=== PATIENT | female | born 1975 | race African-American/Black ===

== ENCOUNTER 2019-10-14 21:05 | Emergency (ER) | payer OTHER ==
[~2019-10-14] VITALS: Ht 172.7 cm; Wt 142.9 kg
[2019-10-14 21:58] LABS: ABSOLUTE NEUTROPHILS 13.1 thou/uL (1.4-8.2); BASOPHILS 0.5 % (0.0-2.0); EOSINOPHILS 0.3 % (0.0-3.0); HEMATOCRIT 41.9 % (37.0-47.0); HEMOGLOBIN 13.9 gm/dL (12.0-15.0); LYMPHOCYTES 14.2 % (24.0-44.0); MCH 26.3 pg (26.0-34.0); MCHC 33.2 g/dL (28.0-37.0); MCV 79.1 fL (80.0-100.0); MONOCYTES 6.2 % (1.0-8.0); PLATELET COUNT 421 thou/uL (150-400); POLYS 78.8 % (36.0-66.0); RDW 15.5 % (10.5-14.5); WBC 16.7 thou/uL (4.0-11.0)
[2019-10-14 22:07] LABS: ANION GAP 15 mmol/L (7-16); BUN 9 mg/dL (7-18); CALCIUM 8.9 mg/dL (8.5-10.1); CHLORIDE 102 mmol/L (98-107); CO2 20 mmol/L (21-32); CREATININE 1.4 mg/dL (0.6-1.0); GLUCOSE 141 mg/dL (74-106); POTASSIUM 3.2 mmol/L (3.5-5.1); SODIUM 137 mmol/L (136-145)
[2019-10-14 22:17] LABS: ALBUMIN 4.5 g/dL (3.4-5.0); LIPASE 225 U/L (73-393); MAGNESIUM 2.1 mg/dL (1.8-2.4); SGOT 25 U/L (15-37); SGPT 37 U/L (30-65); TOTAL BILIRUBIN 0.6 mg/dL (0.2-1.0); TOTAL PROTEIN 8.7 g/dL (6.4-8.2); TROPONIN-I <0.06 ng/mL (<0.06)
[2019-10-14] MEDS ORDERED: LISINOPRIL2.5 MG PO (23:02)
[2019-10-14 23:06] LABS: URINE BILIRUBIN NEGATIVE (Negative); URINE BLOOD TRACE (Negative); URINE CLARITY SL CLOUDY; URINE COLOR YELLOW; URINE GLUCOSE-RANDOM* NEGATIVE (Negative); URINE KETONES NEGATIVE (Negative); URINE NITRITE-REFLEX NEGATIVE (Negative); URINE PROTEIN (DIPSTICK) NEGATIVE (Negative); URINE SPECIFIC GRAVITY 1.015 (1.005-1.035); URINE UROBILINOGEN 0.2 E.U./dl (0.2-1.0)
[2019-10-14 23:08] LABS: URINE LEUKOCYTES-REFLEX 1+ (Negative)
[2019-10-14 23:14] LABS: AMP/METHAMP Negative (Negative); BARBITURATES Negative (Negative); BENZODIAZEPINES Negative (Negative); COCAINE Negative (Negative); METHADONE Negative (Negative); OPIATES Negative (Negative); PCP Negative (Negative)
[2019-10-14 23:25] LABS: CASTS None Seen /LPF (None Seen); CRYSTALS None Seen /LPF (None Seen); MUCUS 4-6 Moderate strn/LPF (None Seen); SQUAMOUS 4-10 Moderate /LPF (0-3); URINE RBC 0-2 Rare /HPF (0-2); URINE WBC-REFLEX 6-15 Few /HPF (0-5)
[2019-10-15 01:19] VITALS: BP 150/100
[2019-10-15] MEDS ORDERED: ATIVAN0.5 M1 PO (01:19)
--- NOTE | 2019-10-15 08:29 | EKG ---
[facility] [place] [address] ELECTROCARDIOGRAM REPORT Name: JESSICA HILLIARD Room #: DEP [facility]#: [id number] Admission: 10/14/19 Attend Phys: Discharge: 10/15/19 Date of : 75 Report #: [id number] THIS REPORT FOR: cc: FAM - Family physician unknown FAM - Family physician unknown Irineo Zendejas MD [facility] ~ THIS REPORT FOR: //name// [facility] ED Test Date: 2019-10-14 Test Time: 21:46:47 Pat Name: JESSICA HILLIARD Department: Room: Gender: F Afternoon Nanny: [facility] : 1975 Requested By: David Pritchard Order Number: [id number] MD: Irineo Zendejas Measurements Intervals [place] Rate: 111 P: 18 WY: 154 QRS: 31 QRSD: 94 T: 48 QT: 348 QTc: 473 Interpretive Statements Sinus tachycardia Nonspecific ST and T wave abnormality No previous ECG available for comparison Electronically Signed On 10-15-2019 8:27:04 CDT by Irineo Zendejas [email or web address] <ELECTRONICALLY SIGNED> By: Irineo Zendejas MD, [facility] 10/15/19 0827 45 45 Irineo Zendejas MD, [facility] /EPI
== END 2019-10-15 01:28 | disposition home or self-care (01) ==
LOC: ER 21:05
PROVIDERS: Emergency Medicine
DX: R55 Syncope and collapse (principal); R42 Dizziness and giddiness; F41.9 Anxiety disorder, unspecified; E87.6 Hypokalemia; D72.829 Elevated white blood cell count, unspecified; I10 Essential (primary) hypertension; Z88.6 Allergy status to analgesic agent; Z79.899 Other long term (current) drug therapy

== ENCOUNTER 2019-10-17 14:32 | Inpatient (IN) | payer OTHER ==
[~2019-10-17] VITALS: Ht 172.7 cm; Wt 142.9 kg
[~2019-10-17 14:32] MED LIST: ATIVAN0.5 M1 PO; LISINOPRIL2.5 MG PO
[2019-10-17 14:54] VITALS: BP 117/91
[2019-10-17 15:06] LABS: URINE BILIRUBIN NEGATIVE (Negative); URINE BLOOD 2+ (Negative); URINE CLARITY CLEAR; URINE COLOR YELLOW; URINE GLUCOSE-RANDOM* NEGATIVE (Negative); URINE KETONES NEGATIVE (Negative); URINE LEUKOCYTES-REFLEX TRACE (Negative); URINE PROTEIN (DIPSTICK) 1+ (Negative)
[2019-10-17 15:07] LABS: URINE NITRITE-REFLEX POSITIVE (Negative)
[2019-10-17 15:15] LABS: ABSOLUTE NEUTROPHILS 13.1 thou/uL (1.4-8.2); EOSINOPHILS 0.1 % (0.0-3.0); HEMATOCRIT 43.9 % (37.0-47.0); HEMOGLOBIN 14.4 gm/dL (12.0-15.0); LYMPHOCYTES 17.3 % (24.0-44.0); MCHC 32.8 g/dL (28.0-37.0); MCV 79.2 fL (80.0-100.0); MONOCYTES 5.9 % (1.0-8.0); PLATELET COUNT 448 thou/uL (150-400); POLYS 75.7 % (36.0-66.0); RBC 5.54 mil/uL (4.20-5.00); RDW 15.6 % (10.5-14.5); WBC 17.3 thou/uL (4.0-11.0)
[2019-10-17 15:22] LABS: BACTERIA-REFLEX >30 Many /HPF (None Seen); CASTS None Seen /LPF (None Seen); CRYSTALS None Seen /LPF (None Seen); SQUAMOUS 0-3 Few /LPF (0-3); URINE RBC 0-2 Rare /HPF (0-2)
[2019-10-17 15:24] LABS: CALCIUM 9.6 mg/dL (8.5-10.1); CREATININE 1.2 mg/dL (0.6-1.0); POTASSIUM 3.2 mmol/L (3.5-5.1)
[2019-10-17 15:30] LABS: ALBUMIN 4.8 g/dL (3.4-5.0); TOTAL BILIRUBIN 0.8 mg/dL (0.2-1.0); TOTAL PROTEIN 9.5 g/dL (6.4-8.2)
[2019-10-17 19:07] LABS: TSH 0.181 uIU/mL (0.358-3.740)
[2019-10-17 19:43] LABS: FOLIC ACID 41.2 ng/mL (8.6-58.9)
[2019-10-17 19:55] VITALS: BP 154/88
[2019-10-17 21:52] VITALS: BP 137/95
[2019-10-18] VITALS (7 sets, daily range): BP systolic 100–160; BP diastolic 76–119
--- NOTE | 2019-10-18 03:56 | NUR ---
ASSUMED CARE OF PT AT 1900HRS. PT AOX4 AND LETS NEEDS BE KNOWN. FALL PRECAUTION IN PLACE DUE TO RECENT FALLS. PT IS A SBA WITH A STEADY GAIT. PT WAS ABLE TO SIGN OWN CONSENTS. PT WAS ORIENTED TO THE UNIT AND HER ROOM. K+ REPLACED. ORDERS RECEIVED AND STARTED. PT DENIED PAIN, NAUSEA OR SOA. PT REPORTED SOME ANXIETY AND PRN MED WAS GIVEN. PT HAD A TEMP OF 100.2 BUT OTHER VSS STABLE. PT IS ON SR OR ST ON THE MONITOR. PT WAS ABLE TO GET COMFORTABLE AND SLEEP PART OF THE SHIFT. WILL CONTINUE TO MONITOR FOR CHANGES.
[2019-10-18 06:06] LABS: BASOPHILS 0.3 % (0.0-2.0); EOSINOPHILS 0.3 % (0.0-3.0); HEMATOCRIT 36.8 % (37.0-47.0); HEMOGLOBIN 12.5 gm/dL (12.0-15.0); LYMPHOCYTES 20.2 % (24.0-44.0); MCH 27.1 pg (26.0-34.0); MCHC 33.9 g/dL (28.0-37.0); MCV 79.8 fL (80.0-100.0); MONOCYTES 5.7 % (1.0-8.0); POLYS 73.5 % (36.0-66.0); RBC 4.61 mil/uL (4.20-5.00); RDW 15.8 % (10.5-14.5); WBC 10.9 thou/uL (4.0-11.0)
[2019-10-18 06:11] LABS: PLATELET COUNT 343 thou/uL (150-400)
[2019-10-18 06:37] LABS: ANION GAP 13 mmol/L (7-16); BUN 8 mg/dL (7-18); CALCIUM 8.1 mg/dL (8.5-10.1); CHLORIDE 102 mmol/L (98-107); CHOLESTEROL 162 mg/dL (<200); CO2 22 mmol/L (21-32); CREATININE 0.9 mg/dL (0.6-1.0); GLUCOSE 110 mg/dL (74-106); HDL CHOLESTEROL 39 mg/dL (>40); LDL CHOLESTEROL 108 mg/dL (<100); POTASSIUM 3.7 mmol/L (3.5-5.1); SODIUM 137 mmol/L (136-145); TC:HDL 4.2 Ratio (Not establshd); TRIGLYCERIDE 77 mg/dL (<150); VLDL 15 mg/dL (<40)
[2019-10-18 06:38] LABS: SERUM ASSESSMENT Clear
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
--- NOTE | 2019-10-18 20:30 | NUR ---
Assumed pt care this am, nausea and vomiting was not noted for this shift. Pt was very anxous of vomiting, 'soft foods were preferred. Pt is able to ambulate in her room with a steady gait, ortho static bp done in the am. POC followed with no signs or verbalizations of distress noted. Pt was movedfrom 450 to 462, room needed to be fixed. endorsed to the night nurse.
--- NOTE | 2019-10-18 20:58 | NUR ---
call from pathology pt's covid test results were negative. Azucena WISE assigned to pt notified.
--- NOTE | 2019-10-19 05:42 | NUR ---
patient aox4 makes needs known. patient denied pain or discomfort.patient had high anxiety this shift.patient ambulates with steady gaits.fall precaution in place. patient in bed asleep at this time breathing regular and unlaboured.
[2019-10-19 06:03] VITALS: BP 153/111
[2019-10-19 08:14] VITALS: BP 168/123
[2019-10-19 08:19] VITALS: BP 161/125
[2019-10-19 08:21] VITALS: BP 157/114
--- NOTE | 2019-10-19 10:07 | NUR ---
RD consult received. Admit wiht UTI/sepsis and n/v. Hx htn, anxiety and depression and new dx PTSD. BMI 47.9=extreme class III obesity. Pt will be npo for EGD today. Note A1C borderline high and pt may benefit from carb controlled diet for wt loss. Advance diet as tolerated following procedure. Low nutrition risk.
--- NOTE | 2019-10-19 10:11 | NUR ---
Consider carb control diet when able to take PO again. A1C 6%, no hx dm indicated and pt with BMI of 47.9.
--- NOTE | 2019-10-19 10:13 | NUR ---
Rec carb controlled diet when diet advanced. Hx borderline diabetes and A1C 6%.
[2019-10-19 12:50] VITALS: BP 145/78
--- NOTE | 2019-10-19 19:57 | NUR ---
Assumed pt care this am, pt was npo and brought down for and EGD. Pt verbalizaed anxiety, medictions given as per emar. PLaced back on regular diet. VS stable, diarrhea noted latter part of the day, sample collected and sent to the lab for c-diff. Isolations precautions until c-diff results return. informed medications ordered. POC followed with no signs of distress. endorsed to the night nurse.
[2019-10-19 21:34] VITALS: BP 144/94
--- NOTE | 2019-10-20 03:09 | NUR ---
PATIENT ALERT AND ORIENTED X4. UP ADLIB IN ROOM WITH IV POLE. CONTINUOUS FLUIDS INFUSING W/O COMPLICATION. DENIES PAIN, HOWEVER REQUESTED AND GIVEN LORAZEPAM AT BED TIME. BS MONITORED PER ORDER. PATIENT HESITANT TO EAT FROM HER DINNER TRAY, HOWEVER, AFTER EATING NO NAUSEA OR VOMITING. RESTING QUIETLY. WILL MONITOR.
[2019-10-20 06:09] LABS: ABSOLUTE NEUTROPHILS 6.3 thou/uL (1.4-8.2); BASOPHILS 0.4 % (0.0-2.0); EOSINOPHILS 1.6 % (0.0-3.0); HEMATOCRIT 35.7 % (37.0-47.0); HEMOGLOBIN 12.1 gm/dL (12.0-15.0); LYMPHOCYTES 23.2 % (24.0-44.0); MCH 26.9 pg (26.0-34.0); MCV 79.1 fL (80.0-100.0); MONOCYTES 7.2 % (1.0-8.0); PLATELET COUNT 296 thou/uL (150-400); POLYS 67.6 % (36.0-66.0); RBC 4.51 mil/uL (4.20-5.00); WBC 9.3 thou/uL (4.0-11.0)
[2019-10-20 06:18] LABS: ALBUMIN 3.6 g/dL (3.4-5.0); CALCIUM 8.3 mg/dL (8.5-10.1); CREATININE 0.9 mg/dL (0.6-1.0); PHOSPHORUS 3.5 mg/dL (2.5-4.9); POTASSIUM 3.3 mmol/L (3.5-5.1); TOTAL BILIRUBIN 0.4 mg/dL (0.2-1.0); TOTAL PROTEIN 7.4 g/dL (6.4-8.2)
[2019-10-20 08:00] VITALS: BP 131/93; BP 146/110; BP 146/119
[2019-10-20] MEDS ORDERED: PANTOPRAZOLE SO40 M1 PO (12:56)
[2019-10-20] MEDS ORDERED: FLAGYL 250 MG250 MG PO (12:57)
[2019-10-20] MEDS ORDERED: FELODIPINE 5 MG5 M1 PO (12:57)
[2019-10-20] MEDS ORDERED: LEVAQUIN 500 M500 M3 PO (12:58)
[2019-10-20 15:00] VITALS: BP 148/101
[2019-10-20] MEDS ORDERED: BACTRIM DS TAB1 EACH PO (18:21)
[2019-10-20] MEDS ORDERED: BACTRIM DS TAB1 EAC1 PO (18:22)
[2019-10-20 18:23] VITALS: BP 148/101
--- NOTE | 2019-10-20 20:16 | NUR ---
Assumed pt care this am, vs stable, No N and V or losse bowels noted. POC followed with no signs or verbalizations of distress noted. Dr. Faustin arranaged with CM Anna Pineda [phone] for medications to be covered, issues arose. Dr. Faustin advised that the pt go to the pharmacy indicated by the CM and medication good for 1 day will be given to her for free. Other medications will be managed on Tuesday by the CM to resolve the issue with the accredited pharmacy. CM informed. DC instructions and precriptions given, IV removed. Pt is now DC.
--- NOTE | 2019-10-22 17:07 | PATH ---
[facility] [address] [place] [address] PATHOLOGY RPT PROCEDURE Name: JESSICA GLORIA Room #: 462-P DIS IN M.R.#: [id number] Admission: 10/17/19 Date of : 75 Discharge: 10/20/19 Report #: [id number] Path Case #: [id number] [facility] Accession Number: [id number] . 01 Material submitted: . stomach - BIOPSY ANTRUM R/O H. PYLORI . 01 Clinical history: . Pre-op diagnosis: N/V, abdominal pain Post-op diagnosis: Gastritis, esophagitis, hiatal hernia R/O H. pylori . 02 Diagnosis: Gastric mucosa, antrum, rule out H. pylori, endoscopic biopsy: - Mild chronic gastritis. - Negative for intestinal metaplasia or atrophy. - Negative for Helicobacter pylori (properly-controlled immunohistochemical stain performed). . (IUV:mml; 10/22/2019) QL 10/22/2019 1051 Local . 02 Electronically signed: . Tonya Loaiza MD, Pathologist NPI- [id number] . 01 Gross description: . The specimen is received in formalin, labeled "Jessica Gloria, biopsy of antrum". Received is a segment of pale viramontes soft tissue measuring 0.4 cm in maximum dimensions. The specimen is submitted entirely in cassette A1. (CAA; 10/19/2019) QAC/QAC 10/19/2019 1817 Local . 02 Pathologist provided ICD-10: K29.50 . 02 CPT . 964370, [id number] Specimen Comment: A courtesy copy of this report has been sent to [phone] Specimen Comment: [phone] Specimen Comment: Report sent to / DR JULIAN Performed at: [address], [place] [id number] MD Catarino Frances MD Phone: [phone] Performed at: [address] [address] PATHOLOGY RPT PROCEDURE Name: JESSICA GLORIA Room #: 462-P DIS IN M.R.#: [id number] Admission: 10/17/19 Date of : 75 Discharge: 10/20/19 Report #: [id number] Path Case #: [id number] [facility] [place] [id number] MD Tonya Loaiza MD Phone: [phone]
== END 2019-10-20 20:06 | disposition home or self-care (01) | DRG 872 ==
LOC: ER 14:32 → 4W 17:31 → EROBS 17:31 → 4W 20:43
PROVIDERS: Internal Medicine; Nurse Practitioner; Physician Assistant; ADMIT Internal Medicine
PROC: 0DB78ZX Excision of Stomach, Pylorus, Via Natural or Artificial Opening Endoscopic, Diagnostic (ICD-10-PCS; principal; 2019-10-19)
DX: A41.9 Sepsis, unspecified organism (principal); N39.0 Urinary tract infection, site not specified; Z68.42 Body mass index [BMI] 45.0-49.9, adult; N17.9 Acute kidney failure, unspecified; I10 Essential (primary) hypertension; E86.0 Dehydration; F41.9 Anxiety disorder, unspecified; E66.01 Morbid (severe) obesity due to excess calories; E87.6 Hypokalemia; R53.1 Weakness; E66.9 Obesity, unspecified; F32.9 Major depressive disorder, single episode, unspecified; K21.9 Gastro-esophageal reflux disease without esophagitis; F43.10 Post-traumatic stress disorder, unspecified; B96.20 Unspecified Escherichia coli [E. coli] as the cause of diseases classified elsewhere; K20.9 Esophagitis, unspecified; K44.9 Diaphragmatic hernia without obstruction or gangrene; R19.7 Diarrhea, unspecified; K29.70 Gastritis, unspecified, without bleeding; Z88.8 Allergy status to other drugs, medicaments and biological substances; Z79.899 Other long term (current) drug therapy
CPT/HCPCS: 10045; 10047; 62110; 62900; 70005

== ENCOUNTER 2021-05-08 13:25 | Emergency (ER) | payer OTHER ==
[~2021-05-08] VITALS: Ht 175.3 cm; Wt 124.7 kg
[~2021-05-08 13:25] MED LIST changes: +BACTRIM DS TAB1 EAC1 PO; +BACTRIM DS TAB1 EACH PO; +FELODIPINE 5 MG5 M1 PO; +FLAGYL 250 MG250 MG PO; +LEVAQUIN 500 M500 M3 PO; +PANTOPRAZOLE SO40 M1 PO
[2021-05-08 15:24] LABS: ABSOLUTE NEUTROPHILS 10.4 thou/uL (1.4-8.2); BASOPHILS 0.5 % (0.0-2.0); HEMATOCRIT 42.1 % (37.0-47.0); HEMOGLOBIN 13.8 gm/dL (12.0-15.0); LYMPHOCYTES 10.6 % (24.0-44.0); MCH 25.6 pg (26.0-34.0); MCHC 32.9 g/dL (28.0-37.0); MCV 77.8 fL (80.0-100.0); MONOCYTES 2.7 % (1.0-8.0); PLATELET COUNT 360 thou/uL (150-400); POLYS 86.2 % (36.0-66.0); RBC 5.41 mil/uL (4.20-5.00); WBC 12.1 thou/uL (4.0-11.0)
[2021-05-08 15:57] LABS: CREATININE 1.1 mg/dL (0.6-1.0); POTASSIUM 3.5 mmol/L (3.5-5.1)
[2021-05-08 16:00] LABS: ALBUMIN 4.7 g/dL (3.4-5.0); TOTAL BILIRUBIN 0.5 mg/dL (0.2-1.0); TOTAL PROTEIN 8.9 g/dL (6.4-8.2)
[2021-05-08 17:45] VITALS: BP 208/110
[2021-05-08] MEDS ORDERED: ZOFRAN ODT4 MG PO (18:19)
[2021-05-08] MEDS ORDERED: METRONIDAZOLE500 M4 PO (18:19)
[2021-05-08] MEDS ORDERED: LEVOFLOXACIN750 MG PO (18:19)
[2021-05-08] MEDS ORDERED: NEXIUM40 MG PO (18:19)
[2021-05-08] MEDS ORDERED: LEVSIN0.125 MG PO (18:19)
== END 2021-05-08 18:50 | disposition home or self-care (01) ==
LOC: ER 13:25
PROVIDERS: Emergency Medicine
DX: K52.9 Noninfective gastroenteritis and colitis, unspecified (principal); Z20.822 Contact with and (suspected) exposure to COVID-19; N21.0 Calculus in bladder; I10 Essential (primary) hypertension; E66.01 Morbid (severe) obesity due to excess calories; F32.9 Major depressive disorder, single episode, unspecified; F41.9 Anxiety disorder, unspecified; E11.9 Type 2 diabetes mellitus without complications; Z79.891 Long term (current) use of opiate analgesic; Z79.899 Other long term (current) drug therapy; Z88.8 Allergy status to other drugs, medicaments and biological substances